=== PATIENT | male | born 1985 | race Caucasian/White ===

== ENCOUNTER 2017-03-26 10:38 | Emergency (ER) | payer SELFPAY ==
[~2017-03-26] VITALS: Ht 190.5 cm; Wt 131.5 kg
[2017-03-26 10:55] VITALS: BP 136/73
[2017-03-26] MEDS ORDERED: HYDR-971 PO (11:00)
--- NOTE | 2017-03-26 11:00 | PHYS DOC ---
Adult General Chief Complaint Chief Complaint: Toothache HPI HPI Patient is a 31 year old male presents the ED complaining of tooth pain 1 week. Describes the pain as sharp, rates the pain as 10/10. Patient states that he has his name on a list for dental clinic and has applied for Medicaid. Pain with chewing. Denies fever, swelling, difficulty swallowing, chest pain, shortness of breath, headache, nausea/vomiting. Review of Systems Review of Systems Constitutional: Denies fever or chills [] Eyes: Denies change in visual acuity, redness, or eye pain [] HENT: Denies nasal congestion or sore throat [] Respiratory: Denies cough or shortness of breath [] Cardiovascular: No additional information not addressed in HPI [] GI: Denies abdominal pain, nausea, vomiting, bloody stools or diarrhea [] : Denies dysuria or hematuria [] Musculoskeletal: Denies back pain or joint pain [] Integument: Denies rash or skin lesions [] Neurologic: Denies headache, focal weakness or sensory changes [] Endocrine: Denies polyuria or polydipsia [] Current Medications Current Medications Current Medications Medications (Trade) Dose Ordered Sig/Sam Start Time Stop Time Status Last Admin Dose Admin Acetaminophen/ Hydrocodone Bitart (Lortab 5/325) 1 tab 1X ONCE 03/26/17 11:15 03/26/17 11:15 DC 03/26/17 11:13 1 TAB Allergies Allergies Allergies Coded Allergies Type Severity Reaction Last Updated Verified No Known Drug Allergies 03/26/17 No Physical Exam Physical Exam Constitutional: Well developed, well nourished, no acute distress, non-toxic appearance. [] HENT: Normocephalic, atraumatic, bilateral external ears normal, oropharynx moist, no oral exudates, nose normal. MILD DENTAL CARIES TO RIGHT UPPER MOLARS. POOR DENTITION THROUGHOUT. NO ABSCESS OR FLUCTUANCE. [] Eyes: PERRLA, EOMI, conjunctiva normal, no discharge. [] Neck: Normal range of motion, no tenderness, supple, no stridor. [] Cardiovascular:Heart rate regular rhythm, no murmur [] Lungs & Thorax: Bilateral breath sounds clear to auscultation [] Abdomen: Bowel sounds normal, soft, no tenderness, no masses, no pulsatile masses. [] Skin: Warm, dry, no erythema, no rash. [] Back: No tenderness, no CVA tenderness. [] Extremities: No tenderness, no cyanosis, no clubbing, ROM intact, no edema. [] Neurologic: Alert and oriented X 3, normal motor function, normal sensory function, no focal deficits noted. [] Psychologic: Affect normal, judgement normal, mood normal. [] Current Patient Data Vital Signs Vital Signs Date Time Temp Pulse Resp B/P (MAP) Pulse Ox O2 Delivery O2 Flow Rate FiO2 03/26/17 11:13 20 Room Air 03/26/17 10:55 97.9 82 97 97.9 EKG EKG [] Radiology/Procedures Radiology/Procedures [] Course & Med Decision Making Course & Med Decision Making Pertinent Labs and Imaging studies reviewed. (See chart for details) [] Dragon Disclaimer Dragon Disclaimer This electronic medical record was generated, in whole or in part, using a voice recognition dictation system. Departure Departure Impression: Primary Impression: Pain, dental Additional Impression: Dental caries Disposition: HOME, SELF-CARE Condition: IMPROVED Referrals: NO PCP (PCP) Patient Instructions: Dental Caries Scripts Amoxicillin (AMOXICILLIN) 500 Mg Tablet 1 TAB PO TID, #30 TAB Prov: NICOLE ERWIN 03/26/17 Hydrocodone/Apap 5-325 (NORCO 5-325 TABLET) 1 Each Tablet 1 TAB PO BID, #8 TAB Prov: NICOLE ERWIN 03/26/17 Problem Qualifiers NICOLE ERWIN Mar 26, 2017 11:00
[2017-03-26] MEDS ORDERED: AMOX500T PO (11:08)
[2017-03-26] MEDS ORDERED: HYDROcodone/APAP 5/325MG 1 TAB TABLET PO ONE (11:15)
== END 2017-03-26 11:14 | disposition home or self-care (01) ==
LOC: ER 10:38
DX: K02.9 Dental caries, unspecified (principal)
CPT/HCPCS: 99283

== ENCOUNTER 2017-04-16 19:10 | Emergency (ER) | payer SELFPAY ==
[~2017-04-16] VITALS: Ht 182.9 cm; Wt 127.0 kg
[~2017-04-16 19:10] MED LIST: AMOX500T PO; HYDR-971 PO
[2017-04-16 19:40] VITALS: BP 152/74
[2017-04-16] MEDS ORDERED: TRAM-48 PO (20:10)
[2017-04-16] MEDS ORDERED: AMOX500C PO (20:10)
--- NOTE | 2017-04-16 20:11 | PHYS DOC ---
Past Medical History Past Medical History: No Pertinent History Past Surgical History: No Surgical History Alcohol Use: None Drug Use: None Adult General Chief Complaint Chief Complaint: DENTAL PROBLEM [facility] HPI Patient is a 31 year old male presents to the emergency department stating he' s had a 2 day history of right jaw pain and discomfort in the upper jaw with swelling. He states he's had a low-grade fever at 100. He denies any nausea vomiting. He denies any foul taste in his mouth. Patient states that he is applying for Medicaid can order to get his teeth pulled therefore has not followed up with the dentist. Patient has been provided with a dental list. Patient states he's tried Anbesol [id number] as well as Tylenol and ibuprofen with no relief. Review of Systems Review of Systems Constitutional: Denies fever or chills [] Eyes: Denies change in visual acuity, redness, or eye pain [] HENT: Denies nasal congestion or sore throat. Dental pain Respiratory: Denies cough or shortness of breath [] Cardiovascular: No additional information not addressed in HPI [] GI: Denies abdominal pain, nausea, vomiting, bloody stools or diarrhea [] : Denies dysuria or hematuria [] Musculoskeletal: Denies back pain or joint pain [] Integument: Denies rash or skin lesions [] Neurologic: Denies headache, focal weakness or sensory changes [] Endocrine: Denies polyuria or polydipsia [] Allergies Allergies Allergies Coded Allergies Type Severity Reaction Last Updated Verified No Known Drug Allergies 03/26/17 No Physical Exam Physical Exam Constitutional: Well developed, well nourished, no acute distress, non-toxic appearance. [] HENT: Normocephalic, atraumatic, bilateral external ears normal, oropharynx moist, no oral exudates, nose normal. Bilateral tympanic membranes appear to be normal. Patient with dental caries noted. Patient with tenderness noted along the upper teeth on the right. Patient with swelling noted in the sinus area. Eyes: PERRLA, EOMI, conjunctiva normal, no discharge. [] Neck: Normal range of motion, no tenderness, supple, no stridor. [] Cardiovascular:Heart rate regular rhythm, no murmur [] Lungs & Thorax: Bilateral breath sounds clear to auscultation [] Abdomen: Bowel sounds normal, soft, no tenderness, no masses, no pulsatile masses. [] Skin: Warm, dry, no erythema, no rash. [] Extremities: No tenderness, no cyanosis, no clubbing, ROM intact, no edema. [] Neurologic: Alert and oriented X 3, normal motor function, normal sensory function, no focal deficits noted. [] Psychologic: Affect normal, judgement normal, mood normal. [] Current Patient Data Vital Signs Vital Signs Date Time Temp Pulse Resp B/P (MAP) Pulse Ox O2 Delivery O2 Flow Rate FiO2 04/16/17 19:40 98.1 103 18 97 Room Air 98.1 EKG EKG [] Radiology/Procedures Radiology/Procedures [] Course & Med Decision Making Course & Med Decision Making Pertinent Labs and Imaging studies reviewed. (See chart for details) Recommended that the patient follow-up with the dentist within the next week. He had been provided with a dental clinic. Patient continues to state that he is unable to follow-up with the dentist as he does not have insurance or he does not have money to pay for the dentist. Explained to patient that he can talk with him about having dental plans. Patient will be discharged home with amoxicillin. He was recommended to use ibuprofen and Tylenol for pain and discomfort. He'll be provided with a prescription for Ultram in which she was instructed will cause drowsiness do not take any be alert and oriented. Patient will be discharged home in stable condition recommended warm salt water mouth rinses 4-5 times a day. Patient agrees with discharge instructions treatment regimens and follow-up recommendations. All questions and concerns been answered at patient's bedside. [] Dragon Disclaimer Dragon Disclaimer This electronic medical record was generated, in whole or in part, using a voice recognition dictation system. Departure Departure Impression: Primary Impression: Pain due to dental caries Additional Impression: Dental abscess Disposition: 01 HOME, SELF-CARE Condition: STABLE Referrals: NO PCP (PCP) Patient Instructions: Dental Abscess, Dental Caries-Brief, Dental Pain, Easy-to -Read Additional Instructions: Medication as prescribed. Tylenol or ibuprofen for pain and discomfort. You may use Ultram for severe pain and discomfort however this medication may cause drowsiness do not take any be alert and oriented. Warm salt water mouth rinses 4-5 times daily. Follow-up with the dentist within the next week. Return back to emergency prior signs symptoms of become worse. Scripts Tramadol Hcl (ULTRAM) 50 Mg Tablet 1 TAB PO Q6HRS, #15 TAB Prov: CHRISTOPH BAILEY APRN 04/16/17 Amoxicillin (AMOXICILLIN) 500 Mg Capsule 1 CAP PO QID, #40 CAP Prov: CHRISTOPH BAILEY APRN 04/16/17 Problem Qualifiers CHRISTOPH BAILEY APRN Apr 16, 2017 20:11
[2017-04-16] MEDS ORDERED: traMADol 50 MG TABLET PO ONE (20:15)
== END 2017-04-16 20:29 | disposition home or self-care (01) ==
LOC: ER 19:10
DX: K02.9 Dental caries, unspecified (principal); K04.7 Periapical abscess without sinus
CPT/HCPCS: 99283

== ENCOUNTER 2017-06-20 13:49 | Emergency (ER) | payer OTHER ==
[~2017-06-20] VITALS: Ht 190.5 cm; Wt 144.7 kg
[~2017-06-20 13:49] MED LIST changes: +AMOX500C PO; +TRAM-48 PO
--- NOTE | 2017-06-20 14:31 | EKG ---
[facility] [address] [place] [address] Test Date: 2017-06-20 Test Time: 14:00:23 Pat Name: ANDERSON MATTA Department: Room: Gender: M [employer]: : 1985 Requested By: GURMEET CHONG Order Number: [id number] Reading MD: Measurements Intervals [place] Rate: 83 P: 40 ID: 150 QRS: -22 QRSD: 94 T: 1 QT: 340 QTc: 404 Interpretive Statements SINUS RHYTHM LEFTWARD AXIS R-S TRANSITION ZONE IN V LEADS DISPLACED TO THE RIGHT INCOMPLETE RIGHT BUNDLE BRANCH BLOCK OTHERWISE NORMAL ECG No previous ECG available for comparison
[2017-06-20 14:41] LABS: BASO # 0.1 x10^3/uL (0.0-0.2); BASO % 1 % (0-3); EOS % 4 % (0-3); HEMATOCRIT 44.2 % (39.0-53.0); HEMOGLOBIN 15.5 g/dL (13.0-17.5); LYMPH # 2.4 x10^3/uL (1.0-4.8); LYMPH % 27 % (24-48); MEAN CORPUSCULAR HEMOGLOBIN 32 pg (25-35); MEAN CORPUSCULAR HGB CONC 35 g/dL (31-37); MEAN CORPUSCULAR VOLUME 92 fL (79-100); MONO % 7 % (0-9); NEUT % 61 % (31-73); PLATELET COUNT 204 x10^3/uL (140-400); RED BLOOD COUNT 4.82 x10^6/uL (4.30-5.70); RED CELL DISTRIBUTION WIDTH 13.1 % (11.5-14.5); WHITE BLOOD COUNT 8.8 x10^3/uL (4.0-11.0)
[2017-06-20] MEDS: fentaNYL PF VIAL 100 MCG/2 ML VIAL IV PRN ×2 (14:41→16:11)
--- NOTE | 2017-06-20 14:48 | RAD ---
CT scan of the head without contrast 06/20/2017 Clinical history: Seizures. Technique: Unenhanced, contiguous, 5 mm axial sections were obtained through the head. One or more of the following individualized dose reduction techniques were utilized for this study: 1. Automated exposure control. 2. Adjustment of the mA and/or kV according to patient size. 3. Use of iterative reconstruction technique. Findings: The ventricles and sulci are within normal limits in size and configuration. No area of abnormal attenuation is seen involving the brain parenchyma. No extra-axial fluid collection is seen. No skull fracture is noted. There is a large right mastoid effusion. Impression: 1. No acute parenchymal abnormality is seen. 2. Large right mastoid effusion.
[2017-06-20 14:52] LABS: CALCIUM 8.4 mg/dL (8.5-10.1); CREATININE 0.9 mg/dL (0.7-1.3); GFR 97.8
[2017-06-20 14:58] LABS: ALBUMIN 3.7 g/dL (3.4-5.0); DIRECT BILIRUBIN 0.1 mg/dL (0.0-0.2); TOTAL BILIRUBIN 0.4 mg/dL (0.2-1.0); TOTAL PROTEIN 6.5 g/dL (6.4-8.2)
[2017-06-20 15:44] LABS: BARBITURATES NEG (NEG); BENZODIAZEPINES NEG (NEG); CANNABINOIDS NEG (NEG); COCAINE NEG (NEG); METHADONE NEG (NEG); OPIATES NEG (NEG); PHENCYCLIDINE NEG (NEG)
[2017-06-20 16:00] VITALS: BP 121/59
[2017-06-20] MEDS ORDERED: ONDANSETRON PF 4 MG/2 ML VIAL. IV PRN (16:00)
[2017-06-20] MEDS ORDERED: MORPHINE SULFATE 2 MG/ML DISP.SYRIN. IV PRN (16:00)
--- NOTE | 2017-06-20 16:23 | PHYS DOC ---
Past Medical History Past Medical History: No Pertinent History Past Surgical History: Other Alcohol Use: None Drug Use: None Adult General Chief Complaint Chief Complaint: SYNCOPE HPI HPI 32-year-old male presenting to the emergency department today after having syncopal episode prior to arrival. There outside his fiance's [employer] office when he reports coughing which caused him to pass out. He reports falling into the bushes. His fiance states the patient for about 10 secs. he reports having a dental infection that is on antibiotics for. He has dental pain. onset today. location generalized. duration once. no alleviating factors. Review of systems is negative for chest pain shortness of breath abdominal pain nausea vomiting. All other review of systems is negative unless otherwise noted in history of present illness. ED course: 32-year-old male presenting the emergency department after having a syncopal versus seizure episode. On arrival the patient is afebrile with a normal heart rate. Saturating well with normal blood pressure. On examination he is neurologically intact. EKG obtained and reviewed by myself shows sinus rhythm with a regular rate. ST segments congruent. Intervals within normal limits. No evidence of WPW. No evidence of hypertrophic obstructive cardiomyopathy. EKG not suggestive of arrhythmogenic conditions. Otherwise blood work unremarkable. Unfortunately the patient's lactate was not drawn at the time of initial arrival. I discussed the case with Dr. zuleta our neurologist who recommended the patient be admitted to the hospital for further evaluation. He then admitted the patient to Dr. Beatty our hospitalist with neurology and cardiology consultation. I have assessed this patient clinically and believe that their condition requires an admission to the hospital. After consulting the admitting physician about this case, they have asked that I admit this patient to their service as an inpatient based on the clinical presentation and my impression. Review of Systems Review of Systems SEE ABOVE. Current Medications Current Medications Current Medications Medications (Trade) Dose Ordered Sig/Sam Start Time Stop Time Status Last Admin Dose Admin Fentanyl Citrate (Fentanyl 2ml Vial) 25 mcg 1X PRN PRN 06/20/17 14:30 06/20/17 16:11 25 MCG Morphine Sulfate 2 mg PRN Q2HR PRN 06/20/17 16:00 06/21/17 15:59 Ondansetron HCl (Zofran) 4 mg PRN Q8HRS PRN 06/20/17 16:00 06/21/17 15:59 Allergies Allergies Allergies Coded Allergies Type Severity Reaction Last Updated Verified No Known Drug Allergies 06/20/17 No Physical Exam Physical Exam SEE ABOVE Constitutional: Well developed, well nourished, no acute distress, non-toxic appearance. [] HENT: Normocephalic, atraumatic, bilateral external ears normal, oropharynx moist, no oral exudates, nose normal. [] Eyes: PERRLA, EOMI, conjunctiva normal, no discharge. [] Neck: Normal range of motion, no tenderness, supple, no stridor. [] Cardiovascular:Heart rate regular rhythm, no murmur [] Lungs & Thorax: Bilateral breath sounds clear to auscultation [] Abdomen: Bowel sounds normal, soft, no tenderness, no masses, no pulsatile masses. [] Skin: Warm, dry, no erythema, no rash. [] Back: No tenderness, no CVA tenderness. [] Extremities: No tenderness, no cyanosis, no clubbing, ROM intact, no edema. [] Neurologic: Alert and oriented X 3, normal motor function, normal sensory function, no focal deficits noted. [] Psychologic: Affect normal, judgement normal, mood normal. [] Current Patient Data Vital Signs Vital Signs Date Time Temp Pulse Resp B/P (MAP) Pulse Ox O2 Delivery O2 Flow Rate FiO2 06/20/17 16:11 18 98 Room Air 06/20/17 14:27 71 102/65 (77) 06/20/17 13:50 98.1 98.1 Lab Values Laboratory Tests Test 06/20/17 14:00 06/20/17 15:27 White Blood Count 8.8 x10^3/uL (4.0-11.0) Red Blood Count 4.82 x10^6/uL (4.30-5.70) Hemoglobin 15.5 g/dL (13.0-17.5) Hematocrit 44.2 % (39.0-53.0) Mean Corpuscular Volume 92 fL (79-100) Mean Corpuscular Hemoglobin 32 pg (25-35) Mean Corpuscular Hemoglobin Concent 35 g/dL (31-37) Red Cell Distribution Width 13.1 % (11.5-14.5) Platelet Count 204 x10^3/uL (140-400) Neutrophils (%) (Auto) 61 % (31-73) Lymphocytes (%) (Auto) 27 % (24-48) Monocytes (%) (Auto) 7 % (0-9) Eosinophils (%) (Auto) 4 % (0-3) H Basophils (%) (Auto) 1 % (0-3) Neutrophils # (Auto) 5.4 x10^3uL (1.8-7.7) Lymphocytes # (Auto) 2.4 x10^3/uL (1.0-4.8) Monocytes # (Auto) 0.6 x10^3/uL (0.0-1.1) Eosinophils # (Auto) 0.3 x10^3/uL (0.0-0.7) Basophils # (Auto) 0.1 x10^3/uL (0.0-0.2) Sodium Level 142 mmol/L (136-145) Potassium Level 4.0 mmol/L (3.5-5.1) Chloride Level 106 mmol/L (98-107) Carbon Dioxide Level 27 mmol/L (21-32) Anion Gap 9 (6-14) Blood Urea Nitrogen 9 mg/dL (8-26) Creatinine 0.9 mg/dL (0.7-1.3) Estimated GFR (Cockcroft-Gault) 97.8 Glucose Level 87 mg/dL (70-99) Calcium Level 8.4 mg/dL (8.5-10.1) L Total Bilirubin 0.4 mg/dL (0.2-1.0) Direct Bilirubin 0.1 mg/dL (0.0-0.2) Aspartate Amino Transferase (AST) 28 U/L (15-37) Alanine Aminotransferase (ALT) 61 U/L (16-63) Alkaline Phosphatase 52 U/L (46-116) Total Protein 6.5 g/dL (6.4-8.2) Albumin 3.7 g/dL (3.4-5.0) Urine Opiates Screen Neg (NEG) Urine Methadone Screen Neg (NEG) Urine Barbiturates Neg (NEG) Urine Phencyclidine Screen Neg (NEG) Urine Amphetamine/Methamphetamine Neg (NEG) Urine Benzodiazepines Screen Neg (NEG) Urine Cocaine Screen Neg (NEG) Urine Cannabinoids Screen Neg (NEG) Urine Ethyl Alcohol Neg (NEG) Laboratory Tests 06/20/17 14:00 Laboratory Tests 06/20/17 14:00 EKG EKG [] Radiology/Procedures Radiology/Procedures [] Course & Med Decision Making Course & Med Decision Making Pertinent Labs and Imaging studies reviewed. (See chart for details) [] Dragon Disclaimer Dragon Disclaimer This electronic medical record was generated, in whole or in part, using a voice recognition dictation system. Departure Departure Impression: Primary Impression: Syncope Additional Impression: Seizure Disposition: ADMITTED INPATIENT Admitting Physician: Other ([place]) Condition: STABLE Referrals: NO PCP (PCP) Problem Qualifiers GURMEET CHONG MD Jun 20, 2017 16:23
[2017-06-28] MEDS ORDERED: HYDR-971 PO (11:55)
[2017-06-28] MEDS ORDERED: AMOX875T PO (11:55)
== END 2017-06-20 16:28 | disposition left against medical advice (07) ==
LOC: ER 13:49
DX: R55 Syncope and collapse (principal); R56.9 Unspecified convulsions
CPT/HCPCS: 36415; 70450; 80048; 80076; 80307; 85025; 93005; 96374; 96376; 99285; J3010; G0479

== ENCOUNTER 2017-06-28 11:00 | Emergency (ER) | payer OTHER | END 2017-06-28 12:12 | disposition home or self-care (01) | LOC: ER 11:00 | DX: K02.9 Dental caries, unspecified (principal); K04.7 Periapical abscess without sinus | CPT/HCPCS: 99283 ==

== ENCOUNTER 2017-08-02 17:48 | Emergency (ER) | payer OTHER ==
[2017-08-02 18:53] LABS: BILIRUBIN,URINE NEGATIVE (NEG); CLARITY,URINE CLEAR; COLOR,URINE YELLOW; GLUCOSE,URINE NEGATIVE (NEG); NITRITE,URINE NEGATIVE (NEG); PH,URINE 5.5; PROTEIN,URINE NEGATIVE (NEG-TRACE); UROBILINOGEN,URINE 0.2 mg/dL (0.2 mg/dL)
[2017-08-02 19:09] LABS: BACTERIA,URINE 0 /HPF (0-FEW); RBC,URINE 0 /HPF (0-2); SQUAMOUS EPITHELIAL CELL,UR FEW /LPF; WBC,URINE 0 /HPF (0-4)
[2017-08-02] MEDS: metroNIDAZOLE 500 MG TABLET PO ×4 (19:30)
== END 2017-08-02 19:31 | disposition home or self-care (01) ==
LOC: ER 17:48
DX: F17.200 Nicotine dependence, unspecified, uncomplicated (principal); Z20.2 Contact with and (suspected) exposure to infections with a predominantly sexual mode of transmission (principal); J44.9 Chronic obstructive pulmonary disease, unspecified (principal); F41.9 Anxiety disorder, unspecified
CPT/HCPCS: 81001; 87491; 87591; 99284

== ENCOUNTER 2017-10-24 18:53 | Emergency (ER) | payer OTHER | END 2017-10-24 20:17 | disposition home or self-care (01) | LOC: ER 18:53 | DX: S39.012A Strain of muscle, fascia and tendon of lower back, initial encounter (principal); J44.9 Chronic obstructive pulmonary disease, unspecified; X58.XXXA Exposure to other specified factors, initial encounter; Y93.89 Activity, other specified; Y99.8 Other external cause status; Y92.89 Other specified places as the place of occurrence of the external cause | CPT/HCPCS: 99283 ==

== ENCOUNTER 2017-12-04 11:46 | Emergency (ER) | payer OTHER ==
[2017-12-04 12:20] LABS: ADD MAN DIFF? NO
[2017-12-04 12:22] LABS: BASO # 0.1 x10^3/uL (0.0-0.2); BASO % 1 % (0-3); EOS # 0.1 x10^3/uL (0.0-0.7); EOS % 1 % (0-3); HEMATOCRIT 42.1 % (39.0-53.0); HEMOGLOBIN 14.9 g/dL (13.0-17.5); LYMPH # 1.7 x10^3/uL (1.0-4.8); LYMPH % 14 % (24-48); MEAN CORPUSCULAR HEMOGLOBIN 32 pg (25-35); MEAN CORPUSCULAR HGB CONC 35 g/dL (31-37); MEAN CORPUSCULAR VOLUME 90 fL (79-100); MONO # 0.6 x10^3/uL (0.0-1.1); MONO % 5 % (0-9); NEUT # 9.6 x10^3uL (1.8-7.7); NEUT % 80 % (31-73); PLATELET COUNT 193 x10^3/uL (140-400); RED BLOOD COUNT 4.67 x10^6/uL (4.30-5.70); WHITE BLOOD COUNT 12.1 x10^3/uL (4.0-11.0)
[2017-12-04] MEDS: IPRATRPIUM/ALBUTEROL 0.5/2.5MG 3 ML NEBU. NEB (12:28)
[2017-12-04 12:29] LABS: ANION GAP 12 (6-14); BLOOD UREA NITROGEN 8 mg/dL (8-26); BUN/CREATININE RATIO 8 (6-20); CALCIUM 8.5 mg/dL (8.5-10.1); CARBON DIOXIDE 23 mmol/L (21-32); CHLORIDE 102 mmol/L (98-107); GFR 86.6; GLUCOSE 97 mg/dL (70-99); POTASSIUM 3.5 mmol/L (3.5-5.1); SODIUM 137 mmol/L (136-145)
[2017-12-04 12:35] LABS: ALBUMIN 3.6 g/dL (3.4-5.0); ALBUMIN/GLOBULIN RATIO 1.5 (1.0-1.7); ALK PHOS 68 U/L (46-116); ALT (SGPT) 45 U/L (16-63); AST (SGOT) 266 U/L (15-37); MAGNESIUM 1.9 mg/dL (1.8-2.4); TOTAL BILIRUBIN 0.6 mg/dL (0.2-1.0)
[2017-12-04 12:40] LABS: TROPONINI < 0.017 ng/mL (0.000-0.055)
== END 2017-12-04 13:56 | disposition left against medical advice (07) ==
LOC: ER 11:46
DX: R55 Syncope and collapse (principal); R07.89 Other chest pain; J44.9 Chronic obstructive pulmonary disease, unspecified; F98.8 Other specified behavioral and emotional disorders with onset usually occurring in childhood and adolescence
CPT/HCPCS: 36415; 71046; 80053; 83735; 84484; 85025; 93005; 94640; 99285-25; J7620

== ENCOUNTER 2018-01-12 00:18 | Emergency (ER) | payer OTHER | END 2018-01-12 00:30 | disposition left against medical advice (07) | LOC: ER 00:18 | DX: R42 Dizziness and giddiness (principal); Z53.21 Procedure and treatment not carried out due to patient leaving prior to being seen by health care provider ==